=== PATIENT | female | born 1990 | race Caucasian/White ===

== ENCOUNTER → 2016-10-19 | Outpatient (CLI) | payer OTHER ==
[2016-10-19 15:15] LABS: HEMATOCRIT 33.9 % (37.0-47.0); HEMOGLOBIN 11.4 g/dL (12.0-16.0); MEAN CORPUSCULAR HEMOGLOBIN 31.1 PG (27-31); MEAN CORPUSCULAR HGB CONC 33.6 g/dL (33-37); MEAN PLATELET VOLUME 9.1 FL (7.4-12.2); RDW COEFFICIENT OF VARIATION 13.3 % (11.5-14.5); RED BLOOD COUNT 3.67 10^6/uL (4.20-5.40); WHITE BLOOD COUNT 10.89 10^3/uL (4.8-10.8)
== END ==
LOC: LAB 13:56
PROVIDERS: ATTEND Student in an Organized Health Care Education/Training Program
DX: Z34.92 Encounter for supervision of normal pregnancy, unspecified, second trimester (principal); Z3A.27 27 weeks gestation of pregnancy
CPT/HCPCS: 36415; 82950; 85027

== ENCOUNTER → 2016-11-05 | Outpatient (CLI) | payer OTHER ==
[2016-11-05 16:08] LABS: HEMATOCRIT 34.5 % (37.0-47.0); HEMOGLOBIN 11.3 g/dL (12.0-16.0); MEAN CORPUSCULAR HEMOGLOBIN 30.1 PG (27-31); MEAN CORPUSCULAR HGB CONC 32.8 g/dL (33-37); RDW COEFFICIENT OF VARIATION 13.1 % (11.5-14.5); RED BLOOD COUNT 3.76 10^6/uL (4.20-5.40); WHITE BLOOD COUNT 12.18 10^3/uL (4.8-10.8)
--- NOTE | 2016-11-05 16:55 | DI ---
US OB FOLLOW-UP,11/05/2016 3:20 PM: Clinical History: Size date discrepancy. Previous Exam: August 27, 2016 Findings: Multiple grayscale and color Doppler sonographic images are obtained through the pelvis demonstrating a normal amniotic fluid index (16.6 cm). Detected Doppler heart tones measure 122 beats per minute. biometry reveals an estimated gestational age of 32 weeks 2 days. Estimated weight is 1812 g (84th percentile). Biparietal diameter measures at the 97th percentile, but head circumference measures at the 92nd perc entile. Umbilical Dopplers were obtained demonstrating SD ratios of between 2.8 and 3.7. Impression: 1. Normal amniotic fluid index. 2. Single live intrauterine gestation with size equal to dates (estimated weight places the fet us at the 84th percentile).
== END ==
LOC: US 15:12
PROVIDERS: ATTEND Student in an Organized Health Care Education/Training Program
DX: O26.843 Uterine size-date discrepancy, third trimester (principal); O99.013 Anemia complicating pregnancy, third trimester; Z3A.30 30 weeks gestation of pregnancy
CPT/HCPCS: 36415; 76816; 85027

== ENCOUNTER → 2016-12-13 | Outpatient (CLI) | payer OTHER | LOC: MOB LAB 15:29 | PROVIDERS: ATTEND Student in an Organized Health Care Education/Training Program | DX: Z34.93 Encounter for supervision of normal pregnancy, unspecified, third trimester (principal); Z3A.35 35 weeks gestation of pregnancy | CPT/HCPCS: 87150 ==

== ENCOUNTER 2016-12-26 23:16 | Outpatient (CLI) | payer OTHER ==
[~2016-12-26 23:16] MED LIST: NORMAL SALINE 10 ML SYRINGE FLUSH IVP PRN
[2016-12-27 02:07] VITALS: RESP 14; TEMP 98.2
--- NOTE | 2016-12-28 20:48 | PDOC(PROG) ---
Intake - - Reason for Visit/Chief Complaint: Contractions Admitted From: Home - Estimated Due Date: 01/12/17 Gestational Age in Weeks and Days: 37 Weeks and 6 Days : 3 Para: 1 Term Births: 1 Births: 0 Number of Abortions (Spont./Elective): 1 Living Children: 1 - Labs Blood Type and Rh: A+ Group B Strep: Negative Hepatitis B Surface Antigen: Absent HIV: Negative Rubella Status: Immune VDRL/RPR: Absent Maternal - Vital Signs Last Taken Vital Signs: Vital Signs - Last Taken Temperature 98.2 F 12/27/16 01:24 Pulse Rate 71 12/27/16 01:24 Respiratory Rate 14 12/27/16 01:24 Blood Pressure 107/74 12/27/16 01:24 Pulse Ox 100 12/27/16 01:24 - Uterine Activity Uterine Contraction Monitor Mode: External Contraction Frequency(minutes): X1 Contraction Duration (seconds): 7 Uterine Contraction Pattern: Regular Uterine Tone Measurement Phase: Resting Uterine Contraction Intensity: Moderate - Cervical Exam Cervical Dilation (cm): 1-2 Cervical Effacement Percentage: 50 Station: -3 Exam Performed By: NAYELY Méndez - Vaginal Discharge Vaginal Bleeding Amount: None Vaginal Discharge Amount: None Vaginal Discharge Description: Thin Vaginal Discharge Color: [place] Vaginal Discharge Odor: Odorless Vaginal Itching: No Monitoring - Uterine Activity Uterine Contraction Monitor Mode: External Contraction Frequency(minutes): X1 Contraction Duration (seconds): 7 Uterine Contraction Pattern: Regular Uterine Tone Measurement Phase: Resting Uterine Contraction Intensity: Moderate Results - Bedside Testing Bedside Urine Ketone: Negative Bedside Urine Leukocytes Esterase: Moderate Bedside Urine Nitrite: Negative Bedside Urine Occult Blood: Moderate Bedside Urine Protein: Negative Bedside Specific [place]: 1.010 Assessment and Plan - Assessment / Plan Additional Assessment/Plan Details: No active labor. Reassuring maternal and evaluation. Discharge to home in good condition. - Time Time Spent With Patient: Less Than 15 Minutes
--- NOTE | 2016-12-29 08:50 | PDOC(PROG) ---
Intake - - Reason for Visit/Chief Complaint: Contractions Admitted From: Home - Estimated Due Date: 01/12/17 Gestational Age in Weeks and Days: 38 Weeks and 0 Days : 3 Para: 1 Term Births: 1 Births: 0 Number of Abortions (Spont./Elective): 1 Living Children: 1 - Labs Blood Type and Rh: A+ Group B Strep: Negative Hepatitis B Surface Antigen: Absent HIV: Negative Rubella Status: Immune VDRL/RPR: Absent Maternal - Vital Signs Last Taken Vital Signs: Vital Signs - Last Taken Temperature 98.2 F 12/27/16 01:24 Pulse Rate 71 12/27/16 01:24 Respiratory Rate 14 12/27/16 01:24 Blood Pressure 107/74 12/27/16 01:24 Pulse Ox 100 12/27/16 01:24 - Uterine Activity Uterine Contraction Monitor Mode: External Contraction Frequency(minutes): X1 Contraction Duration (seconds): 7 Uterine Contraction Pattern: Regular Uterine Tone Measurement Phase: Resting Uterine Contraction Intensity: Moderate - Cervical Exam Cervical Dilation (cm): 1-2 Cervical Effacement Percentage: 50 Station: -3 Exam Performed By: NAYELY Méndez - Vaginal Discharge Vaginal Bleeding Amount: None Vaginal Discharge Amount: None Vaginal Discharge Description: Thin Vaginal Discharge Color: [place] Vaginal Discharge Odor: Odorless Vaginal Itching: No Monitoring - Uterine Activity Uterine Contraction Monitor Mode: External Contraction Frequency(minutes): X1 Contraction Duration (seconds): 7 Uterine Contraction Pattern: Regular Uterine Tone Measurement Phase: Resting Uterine Contraction Intensity: Moderate Results - Bedside Testing Bedside Urine Ketone: Negative Bedside Urine Leukocytes Esterase: Moderate Bedside Urine Nitrite: Negative Bedside Urine Occult Blood: Moderate Bedside Urine Protein: Negative Bedside Specific [place]: 1.010 Assessment and Plan - Assessment / Plan Additional Assessment/Plan Details: No signs of active labor. Reassuring maternal and evaluation. Discharge to home in good condition. - Time Time Spent With Patient: Less Than 15 Minutes
== END 2016-12-27 02:02 | disposition home or self-care (01) ==
LOC: OBOP 23:16
PROVIDERS: ATTEND Obstetrics & Gynecology
DX: O60.03 Preterm labor without delivery, third trimester (principal); Z3A.37 37 weeks gestation of pregnancy
CPT/HCPCS: 59025; 81003; 99211

== ENCOUNTER 2016-12-27 13:53 | Outpatient (CLI) | payer OTHER ==
[2016-12-27] MEDS ORDERED: NORMAL SALINE 10 ML SYRINGE FLUSH IVP PRN (14:51)
[2016-12-27 15:14] VITALS: RESP 18
[2016-12-27 19:17] LABS: AMPHETAMINE SCREEN NEGATIVE (NEG); CANNABINOID SCREEN,URINE NEGATIVE (NEG); COCAINE SCREEN NEGATIVE (NEG); METHADONE URINE SCREEN NEGATIVE (NEG); METHAMPHETAMINES SCREEN,URINE NEGATIVE (NEG); OPIATE SCREEN,URINE POSITIVE (NEG); TRICYCLIC ANTIDEPRESSANT,URINE NEGATIVE (NEG); URINE SAMPLE TYPE VOIDED SPECIMEN; URINE SPECIFIC GRAVITY - MAN 1.015
--- NOTE | 2016-12-28 10:08 | PDOC(PROG) ---
Intake - - Reason for Visit/Chief Complaint: Leakage of Fluid Admitted From: Home - Estimated Due Date: 01/12/17 Gestational Age in Weeks and Days: 37 Weeks and 6 Days : 3 Para: 1 Term Births: 1 Births: 0 Number of Abortions (Spont./Elective): 1 Living Children: 1 - Labs Blood Type and Rh: A+ Group B Strep: Negative Hepatitis B Surface Antigen: Absent HIV: Negative Rubella Status: Immune VDRL/RPR: Absent Maternal - Vital Signs Last Taken Vital Signs: Vital Signs - Last Taken Temperature Pulse Rate 79 12/27/16 15:08 Respiratory Rate 18 12/27/16 15:08 Blood Pressure 124/68 12/27/16 15:08 Pulse Ox 98 12/27/16 15:08 - Uterine Activity Uterine Contraction Monitor Mode: External Contraction Frequency(minutes): x1 Contraction Duration (seconds): 40 Uterine Contraction Pattern: Absent - Vaginal Discharge Vaginal Bleeding Amount: None Vaginal Discharge Amount: None Monitoring - Uterine Activity Uterine Contraction Monitor Mode: External Contraction Frequency(minutes): x1 Contraction Duration (seconds): 40 Uterine Contraction Pattern: Absent Results - Bedside Testing Bedside Urine Ketone: Trace Bedside Urine Leukocytes Esterase: Negative Bedside Urine Nitrite: Negative Bedside Urine Occult Blood: Negative Bedside Urine Protein: Negative Bedside Specific [place]: 1.030 Assessment and Plan - Patient Problems (1) R/O SROM Status: Acute Support Text: 26 yo at 37 5/7 weeks gestation presented from home for possible SROM. Not grossly ruptured, Amnisure negative. Vaginosis panel negative for yeast, BV , trich. She had some uterine irritability/irreg contractions on arrival, but was quite dehydrated. After fluids contractions stopped. Baby OP, explaining a lot of her back pain symptoms. On SVE by me, -/-1, with slight bloody show. I explained that it is very unlikely she is ruptured given the negative amnisure. Without regular contractions and unchanged from her visit about 12 hours prior to triage patient does not appear to be in active labor. We discussed observing for a couple of hours vs return to home. As patient lives far away in [place] and already borrowed money to get here today, we did offer her a chance to stay at [facility], which is what her and her opted to do. If no onset of labor overnight, will return home. Of note patient disclosed to the nurse that she has been taking T3 which was prescribed by her Dentist. I was not aware she was still taking this, although I did know she had dental problems earlier in her . Urine drug screen ordered for this reason. Positive for opiates.
== END 2016-12-27 17:52 | disposition home or self-care (01) ==
LOC: OBOP 13:53
PROVIDERS: ATTEND Student in an Organized Health Care Education/Training Program
DX: O26.893 Other specified pregnancy related conditions, third trimester (principal); N89.8 Other specified noninflammatory disorders of vagina; Z3A.37 37 weeks gestation of pregnancy
CPT/HCPCS: 59025; 80305; 81003; 82542; 84112; 87480; 87510; 87660; 99211

== ENCOUNTER 2017-01-09 18:26 | Inpatient (IN) | payer OTHER ==
[2017-01-09] MEDS ORDERED: Famotidine Inj 20 MG in Normal Saline Flush 10 ML IVP PRN ×4 (19:48)
[2017-01-09] MEDS ORDERED: NORMAL SALINE 10 ML SYRINGE FLUSH IVP PRN (19:48)
[2017-01-09] MEDS ORDERED: OXYTOCIN 10 UNIT/1 ML IM PRN (19:48)
[2017-01-09] MEDS ORDERED: Nalbuphine Inj 20 MG/ML Ampule IVP PRN (19:48)
[2017-01-09] MEDS ORDERED: MISOPROSTOL 200 MCG TABLET RECTAL PRN (19:48)
[2017-01-09] MEDS ORDERED: fentaNYL Inj 100 MCG/2 ML VIAL IV PRN (19:48)
[2017-01-09] MEDS ORDERED: Carboprost Inj 250 MCG/ML AMP IM PRN (19:48)
[2017-01-09] MEDS ORDERED: Naloxone Inj 0.01 MG in Normal Saline Flush 1 ML IVP PRN (19:48)
[2017-01-09] MEDS ORDERED: CefOXitin Inj 2 GM in Sodium Chloride 0.9% 100 ML IV PRN (19:48)
[2017-01-09] MEDS ORDERED: NALOXONE 0.4 MG/1 ML VIAL IVP PRN (19:48)
[2017-01-09] MEDS ORDERED: Phenylephrine Inj 50 MCG in Normal Saline Flush 0.5 ML IVP PRN (19:48)
[2017-01-09] MEDS ORDERED: Metoclopramide Inj 10 MG/2 ML VIAL IV PRN (19:48)
[2017-01-09] MEDS ORDERED: CITRIC ACID/SODIUM CITRATE 30 ML CUP PO PRN (19:48)
[2017-01-09] MEDS ORDERED: TERBUTALINE SULFATE 1 MG/1 ML SDV SUBCUT PRN (19:48)
[2017-01-09] MEDS ORDERED: diphenhydrAMINE 50 MG/1 ML VIAL IVP PRN (19:48)
[2017-01-09] MEDS ORDERED: CALCIUM CARBONATE 500 MG (TUMS) CHEWABLE TABLET PO PRN (19:48)
[2017-01-09] MEDS ORDERED: BUTORPHANOL TARTRATE 2 MG/1 ML VIAL IVP PRN (19:48)
[2017-01-09] MEDS ORDERED: ONDANSETRON 4 MG/2 ML VIAL IVP PRN (19:48)
[2017-01-09] MEDS ORDERED: Lidocaine 1% 10 MG/ML - 20 ML VIAL SUBCUT PRN (19:48)
[2017-01-09] MEDS ORDERED: METHYLERGONOVINE MALEATE 0.2 MG/1 ML VIAL IM PRN (19:48)
[2017-01-09] MEDS ORDERED: LIDOCAINE W/ SODIUM BICARB 0.5 ML SYR SUBD PRN (19:48)
[2017-01-09] MEDS ORDERED: Misoprostol Tab 100 MCG TAB VAGINAL PRN (19:51)
[2017-01-09] MEDS ORDERED: Oxytocin 20 Units + LR 1,000 ML IV SCH (20:00)
[2017-01-09] MEDS: Lactated Ringers-OB Dept 1,000 ML PRIMARY IV SCH ×2 (21:00→22:28)
[2017-01-09 22:30] LABS: HEMOGLOBIN 11.5 g/dL (12.0-16.0); MEAN CORPUSCULAR HGB CONC 33.8 g/dL (33-37); MEAN CORPUSCULAR VOLUME 88.8 FL (81-99); MEAN PLATELET VOLUME 9.7 FL (7.4-12.2); RED BLOOD COUNT 3.83 10^6/uL (4.20-5.40)
[2017-01-09 22:41] LABS: AMPHETAMINE SCREEN NEGATIVE (NEG); CANNABINOID SCREEN,URINE NEGATIVE (NEG); COCAINE SCREEN NEGATIVE (NEG); METHADONE URINE SCREEN NEGATIVE (NEG); METHAMPHETAMINES SCREEN,URINE NEGATIVE (NEG); OPIATE SCREEN,URINE NEGATIVE (NEG); TRICYCLIC ANTIDEPRESSANT,URINE NEGATIVE (NEG); URINE SAMPLE TYPE VOIDED SPECIMEN; URINE SPECIFIC GRAVITY - MAN 1.024
[2017-01-10] MEDS: Lactated Ringers-OB Dept 1,000 ML PRIMARY IV SCH ×3 (05:30→11:44)
[2017-01-10] MEDS: ePHEDrine Inj 5 MG in Normal Saline Flush 1 ML IVP PRN ×2 (07:40→07:45)
[2017-01-10] MEDS ORDERED: LIDOCAINE MPF 2% - 5 ML (20 MG/1 ML) ONE ×2 (07:43→11:27)
[2017-01-10] MEDS ORDERED: Fent/Bupiv 2mcg/0.0625% Epid 250 ML ONE (07:54)
[2017-01-10] MEDS ORDERED: fentaNYL 2 MCG/BUPIVACAINE 0.0625%/NS 0.9% 250 ML BAG EPIDURAL ONE (08:00)
--- NOTE | 2017-01-10 08:27 | OB.PROGRES ---
Interval History: 26 yo at 39 5/7 weeks gestation admitted last night for elective IOL. She received one dose of cytotec 25mcg pv, oniel regularly now, painful. Epidural just placed. She reports minimal back pain, more anterior pain. uncomplicated. PMH notable for meth, marijuana. H/o exercise induced asthma, migraines, depression. Objective - Cervical Exam Cervical Exam: 4/80/-1 [place]: q3-4 mins, couplets prior to epidural Heart Rate: baseline 120, mod variability, +accels, no decels Heart Rate Interpretation Category: Category I - Labs CBC and BMP: 01/09/17 22:00 Labs - Last 24 Hours: Laboratory Results 01/09/17 Range/Units 22:00 WBC 10.75 (4.8-10.8) 10^3/uL RBC 3.83 L (4.20-5.40) 10^6/uL Hgb 11.5 L (12.0-16.0) g/dL Hct 34.0 L (37.0-47.0) % MCV 88.8 (81-99) FL MCH 30.0 (27-31) PG MCHC 33.8 (33-37) g/dL RDW Std Deviation 41.7 (39-50) fL RDW Coeff of Marian 13.2 (11.5-14.5) % Plt Count 212 (140-350) 10*3/uL MPV 9.7 (7.4-12.2) FL Ur Collection Type Voided specimen U Specif Grav (Refrac) 1.024 Urine Opiates Screen Negative (NEG) Ur Buprenorphine Negative (NEG) Ur Oxycodone Screen Negative (NEG) Urine Methadone Screen Negative (NEG) Ur Propoxyphene Screen Negative (NEG) Ur Barbiturates Screen Negative (NEG) U Tricyclic Antidepress Negative (NEG) Phencyclidine Screen Negative (NEG) Amphetamines Screen Negative (NEG) U Methamphetamines Scrn Negative (NEG) U Benzodiazepines Scrn Negative (NEG) Urine Cocaine Screen Negative (NEG) U Cannabinoids Screen Negative (NEG) - Vital Signs Last Taken Vital Signs: Vital Signs - Last Taken Temperature 98.1 F 01/10/17 03:00 Pulse Rate 61 01/10/17 06:00 Respiratory Rate 18 01/10/17 03:00 Blood Pressure 101/72 01/10/17 03:00 Pulse Ox 98 01/10/17 03:00 Assessment and Plan - Patient Problems (1) Term Current Visit: Yes Status: AcuteSupport Text: 26 yo at 39 5/7 weeks gestation admitted for elective IOL at term. -S/p 25 mcg cytotec, AROM just now - clear fluid -Epidural in place -GBS negative -Continue close observation -Rh positive, RI
--- NOTE | 2017-01-10 10:27 | CRNA.PROCE ---
Central Neuraxis Block [facility] - - Safety Measures: Site Verified - - Type of Block: Epidural (Epidural for labor analgesia.) Reason for Block: Analgesia Moniters Used During Block: SPO2, NIBP Positioning: Sitting Skin Prep Used: Betadine (Three times) Draped: Yes Spinal Needle Used: 18 Hustead 80 mm (NICOLETTE technique. 1st pass-severe parasthesia when attempting to thread catheter, abandoned space. Moved down 1 interspace same technique-epidural space times 1, catheter threaded easily. Pt very dramatic and has been moving around, even though she's been warned not to.) Local Anesthetic - Enter Amount Used in Comment Field: 1.5 % Xylocaine with Epinephrine 1:200,000 (mL): Yes (4 as test dose at 736.) Number of Centimeters Catheter Threaded: 3 Bioclusive Dressing Applied: Yes (With skin prep underneath.) - - Additional Details: Labor. Cytotec last night at 2200. Actively oniel. Uncomfortable with contractions. Loudly complaining. Laboratory Results 01/09/17 Range/Units 22:00 WBC 10.75 (4.8-10.8) 10^3/uL RBC 3.83 L (4.20-5.40) 10^6/uL Hgb 11.5 L (12.0-16.0) g/dL Hct 34.0 L (37.0-47.0) % MCV 88.8 (81-99) FL MCH 30.0 (27-31) PG MCHC 33.8 (33-37) g/dL RDW Std Deviation 41.7 (39-50) fL RDW Coeff of Marian 13.2 (11.5-14.5) % Plt Count 212 (140-350) 10*3/uL MPV 9.7 (7.4-12.2) FL Ur Collection Type Voided specimen U Specif Grav (Refrac) 1.024 Urine Opiates Screen Negative (NEG) Ur Buprenorphine Negative (NEG) Ur Oxycodone Screen Negative (NEG) Urine Methadone Screen Negative (NEG) Ur Propoxyphene Screen Negative (NEG) Ur Barbiturates Screen Negative (NEG) U Tricyclic Antidepress Negative (NEG) Phencyclidine Screen Negative (NEG) Amphetamines Screen Negative (NEG) U Methamphetamines Scrn Negative (NEG) U Benzodiazepines Scrn Negative (NEG) Urine Cocaine Screen Negative (NEG) U Cannabinoids Screen Negative (NEG) E-natals reviewed. Epidural placed-Test dose @736-5ml of 2% Lido MPF via epidural at 745. Infusion of Bupivicaine 0.0625 plus Fentanyl 2 mcgs per ml at 14 ml per hour. See pump orders. Pt reports comfort. Danilo Baldwin MS, CERTIFIED REAL ESTATE APPRAISER
[2017-01-10] MEDS ORDERED: Sodium Chloride 0.9% vial 10 ML ONE (11:27)
--- NOTE | 2017-01-10 13:14 | OB.DEL.SUM ---
Delivery Note Delivery Summary: 26 yo G3 now P2012 presented last night for elective IOL. She received one dose of 25 mcg cytotec pv, AROM the next morning and progressed to complete. With approximately 6 pushes she had a of a live male in JANES position over intact perineum with epidural anesthesia. No meconium present, no nuchal cord. The placenta then delivered spontaneously, 3 vessel. Vaginal inspection notable only for periurethral skid han. No repairs necessary. EBL 200 cc. Cord and needle counts were correct. Apgars 8,9. Mom and baby tolerated delivery well. Cord gases: pH 7.436 PCO2 27.2 HCO3 18.3 BE -6 - Patient Problems (1) Term Current Visit: Yes Status: Acute (2) (normal spontaneous vaginal delivery) Current Visit: Yes Status: Acute
[2017-01-10] MEDS ORDERED: GLYCERIN/WITCH HAZEL 1 BOX TOPICAL PRN (13:23)
[2017-01-10] MEDS ORDERED: diphenhydrAMINE 25 MG CAPSULE PO PRN (13:23)
[2017-01-10] MEDS ORDERED: LANOLIN HPA 40 GM TUBE TOPICAL PRN (13:23)
[2017-01-10] MEDS ORDERED: OXYTOCIN 10 UNIT/1 ML IM ONE (13:23)
[2017-01-10] MEDS ORDERED: diphenhydrAMINE 50 MG/1 ML VIAL IVP PRN (13:23)
[2017-01-10] MEDS ORDERED: METHYLERGONOVINE MALEATE 0.2 MG/1 ML VIAL IM PRN (13:23)
[2017-01-10] MEDS ORDERED: ONDANSETRON 4 MG/2 ML VIAL IVP PRN (13:23)
[2017-01-10] MEDS ORDERED: ACETAMINOPHEN 325 MG TABLET PO PRN (13:23)
[2017-01-10] MEDS ORDERED: Ondansetron ODT Tab 4 MG TAB PO PRN (13:23)
[2017-01-10] MEDS ORDERED: MISOPROSTOL 200 MCG TABLET RECTAL ONE (13:23)
[2017-01-10] MEDS ORDERED: BENZOCAINE/MENTHOL SPRAY 56 GM BOTTLE TOPICAL PRN (13:23)
[2017-01-10] MEDS ORDERED: CALCIUM CARBONATE 500 MG (TUMS) CHEWABLE TABLET PO PRN (13:23)
[2017-01-10] MEDS ORDERED: Oxytocin 20 Units + LR 1,000 ML IV SCH (13:23)
[2017-01-10] MEDS ORDERED: Nalbuphine Inj 20 MG/ML Ampule IVP PRN (13:23)
[2017-01-10] MEDS ORDERED: Carboprost Inj 250 MCG/ML AMP IM PRN (13:23)
[2017-01-10] MEDS ORDERED: NORMAL SALINE 10 ML SYRINGE FLUSH IVP PRN (13:23)
[2017-01-10] MEDS ORDERED: Methylergonovine Tab 0.2 MG TAB PO PRN (13:23)
[2017-01-10] MEDS: IBUPROFEN 800 MG TABLET PO PRN ×2 (14:06→22:03)
[2017-01-10] MEDS: HYDROcodone-APAP 5 MG -325 MG TABLET PO PRN ×2 (19:54→23:50)
[2017-01-10] MEDS: DOCUSATE 100 MG CAPSULE PO SCH (20:00)
[2017-01-10 20:10] VITALS: RESP 18
[2017-01-11] MEDS: HYDROcodone-APAP 5 MG -325 MG TABLET PO PRN ×3 (05:24→14:44)
[2017-01-11] MEDS: IBUPROFEN 800 MG TABLET PO PRN ×2 (05:33→13:27)
[2017-01-11 05:36] LABS: HEMATOCRIT 29.1 % (37.0-47.0); HEMOGLOBIN 9.5 g/dL (12.0-16.0); MEAN CORPUSCULAR HEMOGLOBIN 29.6 PG (27-31); MEAN CORPUSCULAR HGB CONC 32.6 g/dL (33-37); MEAN CORPUSCULAR VOLUME 90.7 FL (81-99); MEAN PLATELET VOLUME 9.7 FL (7.4-12.2); RED BLOOD COUNT 3.21 10^6/uL (4.20-5.40)
[2017-01-11 05:40] VITALS: TEMP 98
--- NOTE | 2017-01-11 08:55 | DCSUMMARY ---
Hospitalization Summary Admit Date: 01/09/17 Discharge Date: 01/11/17 Primary Diagnosis:: s/p Delivery Type: Vaginal Hospital Course: 26 yo G3 now P2 admitted for elective IOL. She was given one dose of 25mcg cytotec pv, underwent AROM and progressed to complete. She delivered a TAGA male at 40 5/7 weeks gestation via , with epidural. No significant tears, just b/l periurethral skid han. / Postop Complications: None apparent [place] Complications: None apparent Exam - Vitals Vital Signs: Vital Signs Temperature 98.0 F Temperature Source Oral Pulse Rate [Pulse Oximeter] 96 Pulse Rate 81 Respiratory Rate [Uterine 20 Contractions] Respiratory Rate 18 Blood Pressure [Right Arm] 110/75 Blood Pressure 120/75 Pulse Ox 98 Oxygen Delivery Method Room Air Height 5 ft 6 in Weight 155 lb 12.8 oz - General General Appearance: POSITIVE: No Acute Distress, Cooperative - Head Head Exam: POSITIVE: Normal Inspection - Eye Eye Exam: POSITIVE: Normal Appearance, EOMI - ENT ENT Exam: POSITIVE: Normal Exam - Respiratory Respiratory Exam: POSITIVE: Clear to Auscultation - Bilaterally, Breathing Non Labored - Cardiovascular Cardiovascular Exam: POSITIVE: RRR - GI/Abdominal GI/Abdominal Exam: POSITIVE: Normal Bowel Sounds, Non Tender, Non Distended, Soft Additional GI/Abdominal Exam Details: Uterus Firm, U-2 - Extremities Extremities Exam: POSITIVE: Negative Emily's sign, +1 Edema. NEGATIVE: Calf Tenderness - Neurological Neurological Exam: POSITIVE: Alert, Oriented x 3 - Psychiatric Psychiatric Exam: POSITIVE: Normal Affect, Normal Mood - Integumentary Integumentary Exam: POSITIVE: Normal Color Patient Problems - Patient Problem List (1) Term Current Visit: Yes Status: Acute (2) (normal spontaneous vaginal delivery) Current Visit: Yes Status: AcuteSupport Text: 26 yo , PPD 1. -Doing well -Breast feeding well -Planning to do a tubal 6 weeks pp, will have her sign med 178 today -F/u with me at 6 weeks pp
[2017-01-11] MEDS ORDERED: Prenatal Multivitamin Tab 1 TAB TAB PO SCH (09:00)
[2017-01-11] MEDS: DOCUSATE 100 MG CAPSULE PO SCH (10:53)
--- NOTE | 2017-01-11 14:43 | CRNA.PROGR ---
Anesthesia Note Anesthesia Progress Note: Pt is sitting in chair in hallway, holding her . Pt and complaining about how hot it is in their room. Air handling system is currently out of order in her room. Maintenance is aware. Pt denies headache. Says her back hurts and that they are getting orders for Motrin. Pt states she has a long history of back problems. Back discomfort magnified by labor and epidural placement. She is happy about her . Danilo Baldwin MS, [employer]
== END 2017-01-11 15:00 | disposition home or self-care (01) | DRG 775 ==
LOC: OBIP 19:48
PROVIDERS: ADMIT Student in an Organized Health Care Education/Training Program; ATTEND Student in an Organized Health Care Education/Training Program
PROC: 10907ZC Drainage of Amniotic Fluid, Therapeutic from Products of Conception, Via Natural or Artificial Opening (ICD-10-PCS; 2017-01-09)
PROC: 3E0P7GC Introduction of Other Therapeutic Substance into Female Reproductive, Via Natural or Artificial Opening (ICD-10-PCS; 2017-01-09)
PROC: 10E0XZZ Delivery of Products of Conception, External Approach (ICD-10-PCS; principal; 2017-01-10)
DX: O80 Encounter for full-term uncomplicated delivery (principal); Z3A.39 39 weeks gestation of pregnancy; Z37.0 Single live birth
CPT/HCPCS: 36415; 80305; 81003; 85027; A4216; J2001; J2210; J3010; J3490; J7120

== ENCOUNTER 2017-01-17 18:45 | Inpatient (IN) | payer OTHER ==
[2017-01-17] MEDS ORDERED: Sodium Chloride 0.9% 1,000 ML PRIMARY IV ONE (19:11)
[2017-01-17 19:19] LABS: BILIRUBIN,URINE NEGATIVE (NEG); COLOR,URINE YELLOW; GLUCOSE, URINE (UA) NEGATIVE (NEG); NITRATE,URINE NEGATIVE (NEG); OCCULT BLOOD,URINE MODERATE (NEG); PH,URINE 5.5 (5.0-8.5); PROTEIN,URINE TRACE mg/dl (NEG); UROBILINOGEN,URINE 0.2 EU/dL (0.2)
[2017-01-17 19:25] LABS: CLARITY,URINE CLEAR (CLEAR); URINE SAMPLE TYPE VOID
[2017-01-17] MEDS ORDERED: HYDROmorphone 2 MG/1 ML IVP ONE (19:25)
[2017-01-17 19:26] LABS: SQUAMOUS EPITHELIAL CELL,UR FEW
[2017-01-17] MEDS ORDERED: Clindamycin 900mg (Premix) 900 MG in Dextrose 1 BAG IV ONE (19:36)
[2017-01-17] MEDS ORDERED: GENTAMICIN IV ONE (19:36)
[2017-01-17] MEDS ORDERED: SODIUM CHLORIDE 0.9% IV ONE (19:36)
--- NOTE | 2017-01-17 20:53 | PDOC ---
General Adult HPI - General Chief Complaint: General Medical Stated Complaint: Back pain / Fevers / s/p 1 week Date Seen by Provider: 01/17/17 Time Seen by Provider: 19:00 Source: POSITIVE: Patient, EMS, Other (Records from the sending facility and verbal from sending physician) Exam Limitations: POSITIVE: No limitations Nurse's Notes Reviewed & Considered: Yes - History of Present Illness Initial Comment: The patient is a 26-year-old female who is transferred to our emergency department from [place] with complaints of back/abdominal pain and fever. She is approximately one week status post vaginal delivery. She states that over the past 24 hours she has developed lower back and flank pain as well as lower abdominal cramping. Today she started running a fever. She had initially gone to the clinic in [place] and then was referred to the emergency room there. She had a chest x-ray that was normal as well as a urinalysis that by report did not show any evidence of infection. Her white blood cell count there was elevated at 15,000. Blood cultures were drawn there in the emergency room. She received IV fluids as well as IV Toradol with only minimal relief and subsequently had been given Dilaudid. Decision was made to transfer here for further evaluation. The patient also reports headache which is worse with standing. She did have an epidural during her delivery. She has had some associated nausea. She denies any burning with urination. She states that yesterday she took it easy for the most part and did not have really any significant vaginal bleeding. Today when her pain intensified she did have some increased bleeding however this seems to have subsided again now. Have you received a tetanus shot in the past 10 years?: Yes - Patient Home Medications Home Medications: Home Medications Albuterol Sulfate [Proair Hfa] 1 puff INH Q4-6H puff 05/04/16 Pnv95/Ferrous Fumarate/FA [ Vitamin Tablet] 1 each PO DAILY #30 tab Ferrous Gluconate [Fergon] 2 mg PO BID #60 tab 11/05/16 Omeprazole Magnesium [Prilosec Otc] 1 tab PO QD #30 tab 12/07/16 Docusate Sodium [Colace] 100 mg PO BID #60 cap 01/11/17 HYDROcodone/APAP 5/325 Tab [Biddle 5/325 Tab] 1 - 2 tab PO Q4H PRN #10 tab Ibuprofen [Motrin] 800 mg PO Q8H PRN #60 tab 01/11/17 - Patient Allergies Allergies/Adverse Reactions: Allergies Allergy/AdvReac Type Severity Reaction Status Date / Time Penicillins Allergy Anaphylaxis Verified 01/17/17 19:25 Past Medical History - heen HEENT History: Denies History Cardiovascular History: Denies History Respiratory History: Asthma, Other (please comment) Additional Respiratory History: CHRONIC COUGH, exercised induced asthma Gastrointestinal History: Denies History Genitourinary History: Denies History Endocrine History: Other (please comment) Additional Endocrine History: States Hypoglycemia Musculoskeletal History: Back Pain Prosthesis or Implant: No Neurological History: Migraines Blood Disorders: Anemia Additional Blood Disorders History: Iron Infusions Psychiatric History: Depression Additional Psychiatric History: No Medications. HX Marijauna Use History of Sexually Transmitted Diseases: No Cancer History: Denies History History of MDRO: No History of Other Communicable Diseases: No Alcohol Use: None Substance Use Type: Marijuana Previous Surgical History: No Anesthesia Reactions: No Malignant Hyperthermia: No Significant Family History: Asthma, Heart disease, Cancer, COPD, Lung disease Past Medical History Reviewed: Reviewed - No Changes ROS - Limitations ROS Limitations: No Limitations Constitution: REPORTS: Fever Cardiovascular: REPORTS: Denies Cardiac Symptoms Respiratory: REPORTS: Denies Resp Symptoms Neurological: REPORTS: Headache. DENIES: Numbness, Weakness Gastrointestinal: REPORTS: Abdominal Pain (Lower abdominal pain and cramping), Nausea, Vomitting Musculoskeletal: REPORTS: Denies MS Symptoms Genitourinary: REPORTS: Flank Pain. DENIES: Dysuria, Hematuria, Difficulty Urinating Eyes: REPORTS: Denies Symptoms ENT: REPORTS: Denies Symptoms Skin: DENIES: Rash General Adult Exam - General Appearance General Appearance: POSITIVE: Alert, Cooperative, No Acute Distress, Other (She does appear ill on arrival) - HEENT HEENT: POSITIVE: Head Inspection Nml, Eyes Inspection Nml, Nose Inspection Nml, Pharynx Inspect. Nml, Dry Mucous Membranes - Neck Neck: POSITIVE: Normal Inspection. NEGATIVE: Lymphadenopathy - Respiratory Respiratory: POSITIVE: No Respiratory Distress, Breath Sounds Normal - Cardiovascular Cardiovascular: POSITIVE: Regular Rate & Rhythm, No Murmur - Abdomen Abdomen: Soft: (All Quadrants), Normal Bowel Sounds: (All Quadrants), No Guarding: (All Quadrants), No Rebound: (All Quadrants) Additional Abdominal Details: The patient does have some suprapubic abdominal tenderness and with palpation of her lower abdomen she does have some pain in the right lower quadrant as well , no guarding or rebound tenderness, she does have left CVA tenderness - Back Back: POSITIVE: CVA Tenderness (Left-sided) - Skin Skin: POSITIVE: Normal Color, No Rash - Extremities Extremity: Normal ROM: (All Extremities), Normal Inspection: (All Extremities) - Neurological / Psychological Neurological: POSITIVE: Oriented X3, Motor Normal, Sensation Normal General Adult Progress - Results Reviewed by me Xrays/CTs/US Reviewed by me: Yes Discussed with Radiologist: Yes Radiology Findings: CT scan of the abdomen and pelvis with IV contrast does reveal an enlarged uterus, there is some hypervascularity noted to the anterior uterine wall, there is also a hyperdensity noted at the junction between the uterus and cervix of unknown significance per radiologist. Lab Results Reviewed: Yes Lab Results:: Laboratory Results 01/17/17 Range/Units 19:16 Ur Collection Type Void Urine Color Yellow Urine Clarity Clear (CLEAR) Urine pH 5.5 (5.0-8.5) Ur Specific [place] 1.020 (1.005-1.030) Urine Protein Trace (NEG) mg/dl Urine Glucose (UA) Negative (NEG) mg/dL Urine Ketones 40 (NEG) Urine Occult Blood Moderate H (NEG) Urine Nitrate Negative (NEG) Urine Bilirubin Negative (NEG) Urine Urobilinogen 0.2 (0.2) EU/dL Ur Leukocyte Esterase Negative (NEG) Urine RBC 5-10 (NONE) /hpf Urine WBC None (NONE) Ur Squamous Epith Cells Few (NONE) Ur Renal Epithelial Cell None (NONE) Urine Crystals None Urine Bacteria None (NONE) Urine Casts None (NONE) Urine Mucus None (NONE) Urine Trichomonas None (NONE) Urine Yeast None (NONE) Ur Culture Indicated? Culture not set - Patient's Progress MDM / ED Course: The patient had been transported to our emergency room by ambulance from [place]. She had an IV already established and blood cultures had artery been drawn at the previous facility. Records were reviewed. The patient did receive a second dose of Dilaudid 1 mg IV for pain. She did have a repeat urinalysis here which revealed no evidence of white blood cells or other sign of infection. She did undergo CT scan which shows an enlarged uterus with some hyperdensity noted at the junction between the uterus and cervix. No other acute abnormalities were noted on CT. The patient is discussed with Dr. Lopez. She will be treated with IV clindamycin and IV gentamicin for treatment of endometritis. Dr. Lopez's admitting the patient for further care. These findings and recommendations were discussed with the patient and she is in agreement with this plan. - Consult Counseled: POSITIVE: Patient, RE: Lab Results, RE: Radiology Results, RE: DX, RE : Need for F/U Patient Care Time - Estimated PCT Patient Care Time (In Minutes): 25 Vital Signs - VS Reviewed Vital Signs Reviewed: Yes Discharge Clinical Impression: Endometritis Discharge Disposition: Admit to Inpatient Condition: Stable Date Decision to Admit to Inpatient: 01/17/17 Time Decision to Admit to Inpatient: 20:35
--- NOTE | 2017-01-17 20:54 | DI ---
CT ABDOMEN SCAN WITH IV CONTRAST, 01/17/2017 7:34 PM : Clinical History: Abdominal pain. Elevated white count. The patient is one week . Previous Exam: 11/09/2013. Scans are performed from the lower lung bases through the liver and kidneys with IV contrast. 75 ml o f Isovue 300 was injected IV. The lung bases are clear. On the prior study, there was a density in the right middle lobe measuring about 20 mm in diameter but this area was not scanned on the current exam. Both breasts are enlarged with considerable breast parenchyma consistent with a history of a recent delivery one week earlier. The liver is normal. The gallbladder is grossly normal. There is no abnormality of the spleen, pancre as, and adrenal glands. Both kidneys are normal in size, shape, position and contour. There is no hyd ronephrosis or hydroureter. No renal or ureteral calculi are present. There are no abnormal retrocrur al or periaortic nodes. No ascites is present. READIN. Normal CT abdomen scan. 2. On the previous exam, there was a density in the right middle lobe measuring 20 mm in diameter. T his area was not imaged on the current exam and therefore it cannot be established whether or not thi s lesion has resolved. CT PELVIS SCAN WITH IV CONTRAST, 01/17/2017 7:34 PM: Clinical History: See above. Previous Exam: None at this facility. Scans are performed from just superior to the umbilicus to the symphysis pubis with IV contrast. This is the same bolus of contrast used for the CT scans of the abdomen. Scans through the lower abdomen and pelvis show no masses or abnormal fluid collections. There is no adenopathy. The appendix is normal. The small bowel, terminal ileum, and ileocecal valve are normal. The colon is also normal. There are no hernias. The uterus is enlarged and measures approximately 8 x 12 x 14 cm. The anterior wall of the uterus is hypervascular and review of the antepartum scans of t his patient show that the placenta was anterior corpus. This probably explains the hypervascularity o f the anterior wall. The central uterine canal is hypoechoic. Toward the junction between the uterus and cervix is a focus of increased density measuring about 3 cm in diameter. This density appears to be within the uterine canal and not part of the uterus itself. The exact etiology of this 3 cm mass i s uncertain. The differential would be between a large blood clot versus retained products of concept ion if this patient is exhibiting vaginal bleeding. Both ovaries are normal. READIN. Enlarged uterus, probably still within normal limits for the patient's one week status . The anterior aspect of the uterus is hypervascular and this may be related to the site of implantat ion of the placenta during this . There is a 3 cm area of increased density within the uteri ne cavity at the junction between the uterus and cervix and the exact etiology is uncertain. 2 possib ilities would be a residual blood clot versus retained products of conception, assuming the patient i s having vaginal bleeding. The ovaries are normal. 2. The remainder of the exam is normal.
--- NOTE | 2017-01-17 21:03 | PDOC ---
History and Physical - History of Present Illness Chief Complaint: Fever, abdominal and back pain History of Present Illness: 26 yo G3 now P2, PPD 7 s/p who [facility] for back pain, abdominal pain and fever. Delivery notable for IOL at term. She received 1 dose of cytotec then underwent AROM shortly before delivery. She did have an epidural for pain control. She is breast feeding. Since d/c has had increasing back pain. She did have some increased vaginal bleeding today with the pain, but no foul odor or discoloration. Some associated nausea and DIOP (worse with standing). Workup notable for leukocytosis, normal UA with the exception of hematuria, normal CXR. Blood cultures were collected. CT with contrast - normal appendix, increased vascularity, hypodensity at the junction of uterus and cervix. Past Medical History Medical History: Asthma, Kidney stones, depression, anemia, arthritis, HAs Surgical History: none Tobacco Use: Former Smoker Substance Use Type: Marijuana Medication / Allergies Home Medications: Home Medications Medication Instructions Recorded Confirmed Type Albuterol Sulfate [Proair Hfa] 1 puff INH Q4-6H puff 05/04/16 01/17/17 History Pnv95/Ferrous Fumarate/FA 1 each PO DAILY #30 tab 05/13/16 01/17/17 Clinic [ Vitamin Tablet] Ferrous Gluconate [Fergon] 2 mg PO BID #60 tab 11/05/16 01/17/17 Clinic Omeprazole Magnesium [Prilosec Otc] 1 tab PO QD #30 tab 12/07/16 01/17/17 Clinic Docusate Sodium [Colace] 100 mg PO BID #60 cap 01/11/17 01/17/17 Rx HYDROcodone/APAP 5/325 Tab [[place] 1 - 2 tab PO Q4H PRN #10 tab 01/11/17 Rx 5/325 Tab] Ibuprofen [Motrin] 800 mg PO Q8H PRN #60 tab 01/11/17 01/17/17 Rx Allergies/Adverse Reactions: Allergies Allergy/AdvReac Type Severity Reaction Status Date / Time Penicillins Allergy Anaphylaxis Verified 01/17/17 21:20 Review of Systems - Constitutional Constitutional: REPORTS: Fever/Chills, Fatigue - Integumentary Integumentary: DENIES: Rash - Ear/Nose Exam Ear/Nose Exam: DENIES: Sinus Pain, Rhinorrhea, Congestion - Mouth/Throat Mouth/Throat Exam: DENIES: Sore Throat - Respiratory Respiratory: DENIES: Cough, Wheezing - Cardiovascular Cardiovascular: DENIES: Chest Pain, Palpitations - Gastrointestinal Gastrointestinal / Abdominal: REPORTS: Nausea, Abdominal Pain. DENIES: Vomiting , Diarrhea, Constipation, Heartburn - Genitourinary Genitourinary: DENIES: Pain, Burning - Gynecological Gynecological: REPORTS: Vaginal Bleeding. DENIES: Vaginal Discharge, Breast Tenderness - Musculoskeletal Musculoskeletal: REPORTS: Back Pain - Neurological Neurologic: REPORTS: Headache Exam - Vitals Vital Signs: Vital Signs Height 5 ft 6 in Weight 152 lb - General General Appearance: POSITIVE: Mild Distress (laying in bed with hands over her head, curled up. Not very participatory) - Head Head Exam: POSITIVE: Normal Inspection, Normocephalic - Eye Eye Exam: POSITIVE: PERRL, EOMI, No Scleral Icterus. NEGATIVE: Conjuctival Injection - Neck Neck Exam: NEGATIVE: Lymphadenopathy - Respiratory Respiratory Exam: POSITIVE: Clear to Auscultation - Bilaterally, Breathing Non Labored - Cardiovascular Cardiovascular Exam: POSITIVE: RRR, No Murmur - GI/Abdominal GI/Abdominal Exam: POSITIVE: Normal Bowel Sounds, Non Distended, Soft. NEGATIVE : Distended, Guarding Additional GI/Abdominal Exam Details: TTP suprapubically, uterus firm - Extremities Extremities Exam: POSITIVE: Normal Inspection, Normal Capillary Refill - Back Back Exam: POSITIVE: Normal Inspection (No erythema, warmth, edema at site of epidural) - Neurological Neurological Exam: POSITIVE: Alert, Oriented x 3, Moves All Extremities Equally - Psychiatric Psychiatric Exam: POSITIVE: Agitated - Integumentary Integumentary Exam: POSITIVE: Normal Color, Warm Results - Labs CBC and BMP: 01/18/17 04:21 Labs - Last 24 Hours: Laboratory Results 01/17/17 Range/Units 19:16 Ur Collection Type Void Urine Color Yellow Urine Clarity Clear (CLEAR) Urine pH 5.5 (5.0-8.5) Ur Specific [place] 1.020 (1.005-1.030) Urine Protein Trace (NEG) mg/dl Urine Glucose (UA) Negative (NEG) mg/dL Urine Ketones 40 (NEG) Urine Occult Blood Moderate H (NEG) Urine Nitrate Negative (NEG) Urine Bilirubin Negative (NEG) Urine Urobilinogen 0.2 (0.2) EU/dL Ur Leukocyte Esterase Negative (NEG) Urine RBC 5-10 (NONE) /hpf Urine WBC None (NONE) Ur Squamous Epith Cells Few (NONE) Ur Renal Epithelial Cell None (NONE) Urine Crystals None Urine Bacteria None (NONE) Urine Casts None (NONE) Urine Mucus None (NONE) Urine Trichomonas None (NONE) Urine Yeast None (NONE) Ur Culture Indicated? Culture not set Assessment and Plan - Patient Problems (1) Endometritis Current Visit: Yes Status: AcuteSupport Text: Presumed endometritis given fever, abdominal tenderness, leukocytosis. Urine unremarkable. Normal CXR. Epidural site not red or warm. -Admit -IV clindamycin 900 mg q8h, gentamycin 5mg/kg iv daily -Toradol, vicodin for pain -NS 125 cc/hr overnight for hydration -Repeat CBC in am -SCDs for ppx Photo / Body Diagrams - Uploaded Photos Uploaded Photos:
[2017-01-17] MEDS ORDERED: diphenhydrAMINE 25 MG CAPSULE PO PRN (21:18)
[2017-01-17] MEDS ORDERED: Zolpidem Tab 5 MG TAB PO PRN (21:18)
[2017-01-17] MEDS ORDERED: BENZOCAINE/MENTHOL SPRAY 56 GM BOTTLE TOPICAL PRN (21:18)
[2017-01-17] MEDS ORDERED: diphenhydrAMINE 50 MG/1 ML VIAL IVP PRN (21:18)
[2017-01-17] MEDS ORDERED: LANOLIN HPA 40 GM TUBE TOPICAL PRN (21:18)
[2017-01-17] MEDS ORDERED: ONDANSETRON 4 MG/2 ML VIAL IVP PRN (21:18)
[2017-01-17] MEDS ORDERED: CALCIUM CARBONATE 500 MG (TUMS) CHEWABLE TABLET PO PRN (21:18)
[2017-01-17] MEDS ORDERED: Ondansetron ODT Tab 4 MG TAB PO PRN (21:18)
[2017-01-17] MEDS ORDERED: Zolpidem Tab 5 MG TAB PO ONE (22:01)
[2017-01-17] MEDS: DOCUSATE 100 MG CAPSULE PO SCH (22:04)
[2017-01-17] MEDS: HYDROcodone-APAP 5 MG -325 MG TABLET PO PRN (22:04)
[2017-01-17] MEDS: KETOROLAC 15 MG/1 ML VIAL IVP PRN (22:04)
[2017-01-17] MEDS: Lactated Ringers 1,000 ML PRIMARY IV SCH (22:05)
[2017-01-18] MEDS: HYDROcodone-APAP 5 MG -325 MG TABLET PO PRN ×4 (03:07→19:39)
[2017-01-18] MEDS: Clindamycin 900mg (Premix) 900 MG in Dextrose 1 BAG IV SCH ×3 (03:11→19:54)
[2017-01-18 05:04] LABS: HEMATOCRIT 29.8 % (37.0-47.0); HEMOGLOBIN 9.7 g/dL (12.0-16.0); MEAN CORPUSCULAR HEMOGLOBIN 29.1 PG (27-31); MEAN CORPUSCULAR HGB CONC 32.6 g/dL (33-37); MEAN CORPUSCULAR VOLUME 89.5 FL (81-99); MEAN PLATELET VOLUME 9.4 FL (7.4-12.2); RED BLOOD COUNT 3.33 10^6/uL (4.20-5.40)
[2017-01-18] MEDS: KETOROLAC 15 MG/1 ML VIAL IVP PRN ×3 (05:04→19:40)
[2017-01-18] MEDS: Lactated Ringers 1,000 ML PRIMARY IV SCH ×2 (06:47→14:53)
[2017-01-18] MEDS: Prenatal Multivitamin Tab 1 TAB TAB PO SCH (08:21)
[2017-01-18] MEDS: DOCUSATE 100 MG CAPSULE PO SCH ×2 (08:21→21:55)
--- NOTE | 2017-01-18 16:37 | PT.PROG ---
Progress Note Progress Note: S. Patient states that she is still having a headache however is feeling a little better. O. Patient had combo massage, manual traction, and stretching to her neck to attempt to decrease headache and pain. A. Patient continues to struggle with pain and headaches, she reported that she was feeling a little better after massage and stretch. P. Continue POC.
--- NOTE | 2017-01-18 17:39 | PDOC(PROG) ---
Date and Time of Service: 01/18/2017 1100 Interval History: 26 yo G3 now P2 admitted last night for presumed endometritis given leukocytosis , fever, abdominal/pack pain. She was started on clinda/gent. She reports today she feels significantly better. Back pain nearly resolved. Continues to have a more mild headache at the base of her skull. She just had PT in, states that helped. She is eating, taking fluids well. Minimal lochia, she did report a mild odor today, denied an odor yesterday. Some uterine cramping, although mild. Objective : Data - Labs CBC and BMP: 01/18/17 04:21 Labs - Last 24 Hours: Laboratory Results 01/18/17 Range/Units 04:21 WBC 11.67 H (4.8-10.8) 10^3/uL RBC 3.33 L (4.20-5.40) 10^6/uL Hgb 9.7 L (12.0-16.0) g/dL Hct 29.8 L (37.0-47.0) % MCV 89.5 (81-99) FL MCH 29.1 (27-31) PG MCHC 32.6 L (33-37) g/dL RDW Std Deviation 41.6 (39-50) fL RDW Coeff of Marian 13.0 (11.5-14.5) % Plt Count 207 (140-350) 10*3/uL MPV 9.4 (7.4-12.2) FL Objective : Exam - General General Appearance: No Acute Distress, Cooperative - Head Head Exam: Normal Inspection - Eye Eye Exam: Normal Appearance, PERRL - ENT ENT Exam: Mucous Membranes Moist - Neck Neck Exam: Normal Inspection - Respiratory Respiratory Exam: Clear to Auscultation - Bilaterally, Breathing Non Labored - Cardiovascular Cardiovascular Exam: RRR, No Murmur - GI/Abdominal GI/Abdominal Exam: Normal Bowel Sounds, Non Tender, Non Distended, Soft Additional GI/Abdominal Exam Details: Mild tenderness at fundus of uterus, suprapubic - Exam: Deferred - Extremities Extremities Exam: No Edema Present, Negative Emily's sign - Back Back Exam: Normal Inspection Additional Back Exam Details: No tenderness - Neurological Neurological Exam: Alert, Oriented x 3 - Psychiatric Psychiatric Exam: Normal Affect, Normal Mood - Integumentary Integumentary Exam: Normal Color, Warm, Dry Assessment and Plan - Patient Problems (1) Endometritis Current Visit: Yes Status: AcuteSupport Text: Presumed endometritis given fever, abdominal tenderness, leukocytosis. Afebrile since admission. -Continue IV clindamycin 900 mg q8h, gentamycin 5mg/kg iv daily until 24 hours afebrile, likely switch to augmentin in the morning -Toradol, vicodin for pain -Saline lock IV as taking fluids well now -Recommended caffeine for headache, doubt spinal at this point. (did discuss with ACQUISITIONS EDITOR as well) -Pump and dump until 24 hours after last IV clinda dose -Repeat CBC in am -SCDs for ppx -Anticipate d/c home tomorrow if doing well Photo / Body Diagrams - Uploaded Photos Uploaded Photos:
[2017-01-18] MEDS: NORMAL SALINE 10 ML SYRINGE FLUSH IVP PRN (19:45)
[2017-01-18] MEDS ORDERED: Gentamicin Inj 40 MG/ML VIAL ONE (21:33)
[2017-01-19] MEDS: Clindamycin 900mg (Premix) 900 MG in Dextrose 1 BAG IV SCH ×3 (03:30→19:07)
[2017-01-19] MEDS: IBUPROFEN 800 MG TABLET PO PRN ×3 (03:30→23:41)
[2017-01-19] MEDS: HYDROcodone-APAP 5 MG -325 MG TABLET PO PRN ×3 (03:31→19:07)
[2017-01-19 05:53] LABS: HEMATOCRIT 30.9 % (37.0-47.0); HEMOGLOBIN 10.1 g/dL (12.0-16.0); MEAN CORPUSCULAR HEMOGLOBIN 29.4 PG (27-31); MEAN CORPUSCULAR HGB CONC 32.7 g/dL (33-37); MEAN CORPUSCULAR VOLUME 89.8 FL (81-99); MEAN PLATELET VOLUME 9.3 FL (7.4-12.2); RED BLOOD COUNT 3.44 10^6/uL (4.20-5.40)
[2017-01-19] MEDS: DOCUSATE 100 MG CAPSULE PO SCH ×2 (08:29→20:26)
[2017-01-19] MEDS: Prenatal Multivitamin Tab 1 TAB TAB PO SCH (08:30)
--- NOTE | 2017-01-19 09:35 | PDOC(PROG) ---
Interval History: 26 yo G3 now P2 admitted 2 nights ago for fever, abdominal pain, leukocytosis - presumed endometritis. She has been afebrile >24 hours. DIOP improved yesterday after caffeine, fluids. She reports an episode of excruciating pain overnight, pain in upper back, head. So bad she couldn't move. Improved with heat pack. Not ready to go home until she knows her pain is resolved. She reported increased lochia yesterday, brown, clotted. No odor. Had some increased lower abdominal pain. Has not had a good BM in a couple days, she did have 2 small timothy yesterday. Objective : Data - Labs CBC and BMP: 01/19/17 04:56 Labs - Last 24 Hours: Laboratory Results 01/19/17 Range/Units 04:56 WBC 8.57 (4.8-10.8) 10^3/uL RBC 3.44 L (4.20-5.40) 10^6/uL Hgb 10.1 L (12.0-16.0) g/dL Hct 30.9 L (37.0-47.0) % MCV 89.8 (81-99) FL MCH 29.4 (27-31) PG MCHC 32.7 L (33-37) g/dL RDW Std Deviation 41.1 (39-50) fL RDW Coeff of Marian 12.9 (11.5-14.5) % Plt Count 229 (140-350) 10*3/uL MPV 9.3 (7.4-12.2) FL Objective : Exam - General General Appearance: No Acute Distress, Cooperative - Head Head Exam: Normal Inspection - Eye Eye Exam: EOMI, No Scleral Icterus - ENT ENT Exam: Normal Exam, Mucous Membranes Moist - Neck Neck Exam: Normal Inspection, Tenderness (cervical paraspinous muscles, palpable spasm), No Lymphadenopathy - Respiratory Respiratory Exam: Clear to Auscultation - Bilaterally, Breathing Non Labored - Cardiovascular Cardiovascular Exam: RRR - GI/Abdominal GI/Abdominal Exam: Normal Bowel Sounds, Non Tender, Non Distended, Soft - Extremities Extremities Exam: No Edema Present - Back Back Exam: Paraspinal Tenderness - Neurological Neurological Exam: Alert, Oriented x 3 - Psychiatric Psychiatric Exam: Flat Affect - Integumentary Integumentary Exam: Warm, Dry, Intact Assessment and Plan - Patient Problems (1) Endometritis Current Visit: Yes Status: AcuteSupport Text: Presumed endometritis given fever, abdominal tenderness, leukocytosis. Afebrile >24 hours now. However with an episode of upper back pain in the middle of the night. Blood cultures negative from [facility]. Leukocytosis resolved. -Continue IV clindamycin 900 mg q8h, gentamycin 5mg/kg iv daily until 24 hours afebrile, will reassess this afternoon -Will have PT see her again today, paraspinous muscles are tender and spasm'd -Toradol, vicodin for pain -Restart IVF as patient is worried about her milk supply -Continue caffeine for headache, still doubt spinal DIOP as source. -Pump and dump until 24 hours after last IV clinda dose -Add Miralax for constipation -Encouraged ambulation -SCDs for ppx -Anticipate d/c home tomorrow or this afternoon if doing well Photo / Body Diagrams - Uploaded Photos Uploaded Photos:
[2017-01-19] MEDS ORDERED: NORMAL SALINE 100 ML IV SCH (09:45)
[2017-01-19] MEDS: Sodium Chloride 0.9% 1,000 ML PRIMARY IV SCH ×2 (10:52→20:25)
[2017-01-19] MEDS ORDERED: CYCLOBENZAPRINE 10 MG TABLET PO PRN (16:26)
[2017-01-19 16:45] LABS: HEMATOCRIT 32.8 % (37.0-47.0); HEMOGLOBIN 10.9 g/dL (12.0-16.0); MEAN CORPUSCULAR HEMOGLOBIN 29.9 PG (27-31); MEAN CORPUSCULAR HGB CONC 33.2 g/dL (33-37); MEAN CORPUSCULAR VOLUME 89.9 FL (81-99); MEAN PLATELET VOLUME 8.6 FL (7.4-12.2); RED BLOOD COUNT 3.65 10^6/uL (4.20-5.40)
[2017-01-19 16:56] LABS: BLOOD UREA NITROGEN 10 mg/dL (7-22); CALCIUM 8.6 mg/dL (8.7-10.7); EST GLOMERULAR FILTRATION > 60 (>60 ml/min/1.73m(2)); SERUM ALBUMIN 3.2 g/dL (3.5-4.8); URIC ACID 3.7 mg/dl (2.5-6.2)
[2017-01-19] MEDS: NORMAL SALINE 10 ML SYRINGE FLUSH IVP PRN (17:04)
[2017-01-19] MEDS ORDERED: Gentamicin Inj 40 MG/ML VIAL ONE (20:18)
[2017-01-19 22:00] LABS: BILIRUBIN,URINE NEGATIVE (NEG); COLOR,URINE YELLOW; GLUCOSE, URINE (UA) NEGATIVE (NEG); NITRATE,URINE NEGATIVE (NEG); OCCULT BLOOD,URINE SMALL (NEG); PH,URINE 5.5 (5.0-8.5); PROTEIN,URINE TRACE mg/dl (NEG); UROBILINOGEN,URINE 0.2 EU/dL (0.2)
[2017-01-19 22:05] LABS: BACTERIA,URINE RARE; CLARITY,URINE CLEAR (CLEAR); URINE SAMPLE TYPE CLEAN CATCH URINE; WBC,URINE 0-1
[2017-01-20] MEDS: Clindamycin 900mg (Premix) 900 MG in Dextrose 1 BAG IV SCH (04:13)
[2017-01-20] MEDS: Sodium Chloride 0.9% 1,000 ML PRIMARY IV SCH (06:20)
[2017-01-20] MEDS: HYDROcodone-APAP 5 MG -325 MG TABLET PO PRN (08:24)
[2017-01-20] MEDS: Prenatal Multivitamin Tab 1 TAB TAB PO SCH (08:25)
[2017-01-20] MEDS: DOCUSATE 100 MG CAPSULE PO SCH (08:25)
[2017-01-20] MEDS ORDERED: POLYETHYLENE GLYCOL 3350 17 GM POWDER PO SCH (09:00)
[2017-01-20 12:13] VITALS: RESP 14; TEMP 98.6
--- NOTE | 2017-01-20 14:08 | DCSUMMARY ---
Hospitalization Summary Admit Date: 01/17/17 Discharge Date: 01/20/17 Primary Diagnosis:: Endometritis Secondary Diagnosis:: Back pain Headache Hospital Course: 26 yo G3 now P2, PPD 10 s/p . Patient was admitted on 01/17/17 after presenting to the [place] ER with fever (up to 103), back and abdominal pain. Workup notable for leukocytosis to 15,000. CT was negative for appy, but did show some hypervascularity of the uterus. No e/o UTI. Given fundal tenderness, fever, leukocytosis she was admitted for endometritis and started on IV clinda and gent. She is now >48 hours afebrile, uterine tenderness much improved. She has mild lochia, no odor. Hospital course complicated further by DIOP, back and neck pain. PT has been very helpful and an outpatient Rx has been written. She did have increased SOB this morning and hypoxia. DDimer was elevated - CTA negative for PE but notable for b/l pleural effusions. Since turning off her fluids her breathing is much improved. We did continue the fluids yesterday to try to help with her milk supply, although I suspect this is the reason for the pulmonary eduma/pleural effusions. She did have several BPs overnight >140/90 - gestational htn panel unremarkable, trace urine protein. BP 133/82 at discharge. DIOP resolved. Neck and back pain improved. Patient stable for d/c to home. Exam - Vitals Vital Signs: Vital Signs Temperature 98.6 F Temperature Source Temporal Artery Scan Pulse Rate [Apical] 68 Pulse Rate [Pulse Oximeter] 86 Pulse Rate [Pulse Oximeter] 67 Pulse Rate 93 Respiratory Rate 14 Blood Pressure [Left Arm] 157/91 Blood Pressure [Right Arm] 144/101 Blood Pressure 144/98 Pulse Ox 96 Oxygen Flow Rate 1 Oxygen Delivery Method Room Air Height 5 ft 6 in Weight 151 lb - General General Appearance: POSITIVE: No Acute Distress, Cooperative - Head Head Exam: POSITIVE: Normal Inspection - Eye Eye Exam: POSITIVE: Normal Appearance - ENT ENT Exam: POSITIVE: Normal Exam, Mucous Membranes Moist - Neck Neck Exam: POSITIVE: Normal Inspection, No Lymphadenopathy - Respiratory Respiratory Exam: POSITIVE: Breathing Non Labored, Coarse Breath Sounds (at bases) - Cardiovascular Cardiovascular Exam: POSITIVE: RRR, No Murmur - GI/Abdominal GI/Abdominal Exam: POSITIVE: Normal Bowel Sounds, Non Tender, Non Distended, Soft, Firm (U-3, very mild tenderness over fundus - improved since admission) - Exam: POSITIVE: Deferred - Extremities Extremities Exam: POSITIVE: Normal Inspection, Full ROM, Normal Capillary Refill , No Edema Present, Negative Emily's sign. NEGATIVE: Calf Tenderness - Neurological Neurological Exam: POSITIVE: Alert, Oriented x 3 - Psychiatric Psychiatric Exam: POSITIVE: Normal Affect, Normal Mood - Integumentary Integumentary Exam: POSITIVE: Normal Color Data Perinent Studies: 01/19/17 01/19/17 01/20/17 16:40 22:05 07:55 WBC 8.00 Hgb 10.9 L Hct 32.8 L Plt Count 245 D-Dimer 3.63 H Sodium 141 Potassium 3.7 L Chloride 107 Carbon Dioxide 24 BUN 10 Creatinine 0.5 Glucose 104 Uric Acid 3.7 Calcium 8.6 L Total Bilirubin 0.3 AST 36 ALT 43 Alkaline Phosphatase 142 H Ur Collection Type Clean catch urine Ur Specific [place] 1.025 Urine Protein Trace Urine Glucose (UA) Negative Urine Ketones Negative Urine Occult Blood Small H Urine Nitrate Negative Urine Bilirubin Negative Ur Leukocyte Esterase Negative Urine Bacteria Rare CTA Chest 01/20/17- Diffuse air space disease most c/w edema. B/l pleural effusions, no pulmonary embolism. CXR 01/19/17 - No airspace disease CT abd/perlvis w/ contrast 01/17/17 - Enlarged uterus, probably still w/in normal limits for the patient's one week pp status. Anterior aspect of the uterus is hypervascular and this may be related to the site of implantation of the placenta during this . There is a 3 cm area of increased density withint the uterine cavity at the jtn between the uterus and cervix and the exact etiology is uncertain. 2 possibilities would be a residual blood clot vs retained products of conception, assuming the patient is having vaginal bleeding. Ovaries are normal. Patient Problems - Patient Problem List (1) Endometritis Current Visit: Yes Status: AcuteSupport Text: Resolved. Antibiotic course complete as >48 hours afebrile now. To pump and dump until 24 hours after last dose of clinda. (2) Thoracalgia Current Visit: Yes Status: Acute Support Text: Acute on chronic. Continue PT/OT as outpatient, Rx written. Rx for flexeril and [place] sent in. Would try to avoid use of flexeril given , but it will be available if pain is bad enough. (3) Cervicalgia Current Visit: Yes Status: Acute
--- NOTE | 2017-01-21 08:07 | PT.PROG ---
Progress Note Progress Note: S: Pt. states she is still having a headache. Still pretty miserable she states. O: Treatment consisted of moist heat and ifc to neck followed by combo and massage to neck and thoracic spine. A: Pt. continues have have a headache, and neck pain. She does have relief following modalities. P: Continue per POC to increase strength and activity tolerance. Shari Rothman, [employer]
--- NOTE | 2017-01-21 12:27 | PTI REPORT ---
Thank you for the referral of Jason Sebastian. She was seen on 01/18/17 for an inpatient evaluation secondary to headaches and back pain. SUBJECTIVE: The patient is a 26-year-old female. The patient reports that she lives in [place]. She reports she is currently not working. The patient has a five-year- old at home and now a gdsic-pre-lrs baby. The patient reports that she has had a lot of neck pain and back pain in the past and had an injection but didn't seem to find much relief. The patient reports she is having headaches more intensely. The patient reports she has her massage her to improve pain and that seems to help. PAST MEDICAL HISTORY: Past medical history can be found in the patient's medical record. OBJECTIVE FINDINGS: General observations: The patient was seen seated upright in bed. Range of motion: The patient demonstrated restriction with left rotation and right side bending. The patient is very limited in upper cervical rotation and very tender over suboccipitals. She has a very slumped forward head posture with rounded shoulders and tight pec minors. The patient was able to demonstrate within functional limits shoulder range of motion. ASSESSMENT: The patient is a 26-year-old female that presents with cervical pain and back pain. She is complaining of no low back pain at the moment but the patient said it can be provoked. The patient would benefit from skilled therapy for modalities, light home techniques for strengthening, and improved motion and decreased pain. It is recommended that the patient might benefit from outpatient physical therapy in the future. The patient's prognosis for therapy is fair. Problem List: Decreased functional mobility Pain Decreased range of motion Short-Term Goals: To be met by discharge from inpatient: Patient will have a pain level less than or equal to 3/10. Patient will be able to demonstrate 25% improvement in cervical range of motion. Patient will report 25% decrease in headaches. Long-Term Goals: To be met following discharge from inpatient: Patient should be seen by outpatient physical therapy if symptoms persist. TREATMENT PLAN: Patient will be seen B.I.D during the week and one time per day over the weekend as an inpatient for modalities, therapeutic exercise as appropriate, manual therapy, and range of motion. INITIAL TREATMENT: Treatment today consisted of the initial evaluation followed by an application of moist heat pack with interferential current to the cervical and thoracic spine followed by soft tissue massage to the cervical and thoracic spine. The patient then received manual therapy to cervical segments. Upper cervical rotation was addressed and gentle passive range of motion was performed in all planes while the patient was seated. The patient was left in room with call light within reach and compression pumps on lower extremities. MTDD
--- NOTE | 2017-01-21 14:48 | OT AM DAY ---
Diagnosis : Headaches/Back Pain AM - Occupational Therapy S: The patient reports that her pain is still pretty intense as she described it in the mid back and lower back. She states she still is getting headaches; however, those are a little bit better than they were a couple of days ago. She said four days ago it was just making her cry and scream because the headaches were so intense. O: The patient received an application of moist heat pack to the neck and back followed by manual therapy in the form of edema and pain relieving massage to the lower thoracic and cervical spine region. The patient received traction to the cervical spine region with light first rib mobilizations and lateralization of movement. We did some very light manual mobilizations of the thoracic spine while in a prone position as well as traction to the arms and abduction of the scapula to the right and left side. The patient was also Kinesio taped to assist with back extension as well as a space correction star technique over the T5-T6 area where she says most of the pain is shooting from. A: The patient is definitely demonstrating some possible spinal nerve involvement, especially in the thoracic spine. She had some tests run this morning but the results have not been given yet. We will look at improving her overall pain levels. P: Continue seeing patient BID during the week and one time per day over the weekend for transfers, ambulation, and range of motion/strengthening exercises. JOEY
== END 2017-01-20 16:20 | disposition home or self-care (01) | DRG 776 ==
LOC: ER 18:45 → MED/SURG 20:58
PROVIDERS: ADMIT Student in an Organized Health Care Education/Training Program; ATTEND Student in an Organized Health Care Education/Training Program
DX: O86.12 Endometritis following delivery (principal); M54.6 Pain in thoracic spine; M54.2 Cervicalgia; D72.829 Elevated white blood cell count, unspecified
CPT/HCPCS: 36415; 71020; 71275; 74177; 80053; 81001; 81003; 83615; 84550; 85025; 85027; 85379; 94761; 96361; 96365; 96375; 97010; 97014; 97035; 97110; 97112; 97124; 97140; 97161; 99284; E0240; J1170; J1580; J1885; J2405; J3490; J7030; J7050; J7120

== ENCOUNTER 2017-02-21 08:58 | Day surgery (SDC) | payer OTHER ==
[2017-02-21 09:28] LABS: BILIRUBIN,URINE NEGATIVE (NEG); CLARITY,URINE CLEAR (CLEAR); COLOR,URINE YELLOW; GLUCOSE, URINE (UA) NEGATIVE (NEG); NITRATE,URINE NEGATIVE (NEG); OCCULT BLOOD,URINE NEGATIVE (NEG); PH,URINE 5.5 (5.0-8.5); PROTEIN,URINE NEGATIVE (NEG); UROBILINOGEN,URINE 0.2 EU/dL (0.2)
[2017-02-21] MEDS ORDERED: LIDOCAINE MPF 2% - 5 ML (20 MG/1 ML) ONE (09:37)
[2017-02-21] MEDS ORDERED: fentaNYL Inj 250 MCG/5 ML VIAL ONE (09:37)
[2017-02-21] MEDS ORDERED: MIDAZOLAM 5 MG/1 ML ONE (09:37)
[2017-02-21 09:55] VITALS: RESP 16
[2017-02-21] MEDS ORDERED: Lactated Ringers 1,000 ML PRIMARY IV ONE ×2 (10:07→14:54)
[2017-02-21] MEDS ORDERED: LIDOCAINE W/ SODIUM BICARB 0.5 ML SYR ONE (10:07)
[2017-02-21] MEDS ORDERED: BUPIVACAINE 0.25% W/ EPI - 10 ML VIAL ONE ×2 (10:40)
[2017-02-21] MEDS ORDERED: LIDOCAINE HCL 2 % 10 ML JELLY URO-JECT TOPICAL ONE (10:53)
[2017-02-21] MEDS ORDERED: DEXAMETHASONE SOD PHOSPHATE 4 MG/1 ML VIAL ONE (11:05)
[2017-02-21] MEDS ORDERED: ONDANSETRON 4 MG/2 ML VIAL ONE (11:05)
[2017-02-21] MEDS ORDERED: IBUPROFEN 800 MG TABLET PO PRN (11:17)
[2017-02-21] MEDS ORDERED: Ondansetron ODT Tab 8 MG TAB PO PRN (11:17)
[2017-02-21] MEDS ORDERED: NORMAL SALINE 10 ML SYRINGE FLUSH IVP PRN (11:17)
[2017-02-21] MEDS ORDERED: KETOROLAC 30 MG/1 ML VIAL IVP PRN (11:17)
[2017-02-21 11:23] LABS: URINE SAMPLE TYPE CLEAN CATCH URINE
--- NOTE | 2017-02-21 11:25 | OB.OP.NOTE ---
Operative Report Surgeon: Amanda Surfacer: Nikita Hylton MD Anesthesia Type: General Anesthesia Provider: Joshua Jefferson CRNA Surgery Date: 02/21/17 Preoperative Diagnosis: Desires Sterilization Postoperative Diagnosis: Same Procedure: LSTS with Filshie Clips Estimated Blood Loss (mL): 2 Fluids: 1000 ml Complications: None Findings at Surgery: Normal pelvis. Indications for the Procedure: Desires sterilization. 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 She was then placed in lithotomy position in [facility]. Examination under anesthesia was unremarkable. She was prepped and draped in the normal sterile fashion and her bladder was emptied of urine with a straight catheter. A breakaway speculum was placed in the vagina and the anterior lip of the cervix was grasped with a signal tooth tenaculum. Uterus was sounded to a depth of 8 cm. A HUMI uterine manipulator was introduced in the endometrial cavity and its balloon was inflated with air. The tenaculum was removed. Quarter percent Marcaine with epinephrine was injected at the inferior edge of the umbilicus in the midline and just lateral to that on both sides. The scalpel was used to create a 5 mm midline incision at the inferior edge of the umbilicus. Penetrating towel clamps used to grasp the abdominal wall just lateral to the incision on both sides and elevate while a 5 mm non-bladed laparoscopic trocar was introduced through the umbilical incision into the peritoneal cavity with a direct insertion technique under direct visualization with the fibromatous scope placed within the port. The abdomen was insufflated with carbon dioxide. A second port was then placed in the midline just above the pubic bone after injection with Marcaine. An 8 mm non-bladed [employer] scopic trocar was introduced to this incision into the perineal cavity under direct visualization. A Filshie clip applicator was then introduced through the suprapubic port. The right fallopian tube was grasped at its mid isthmic portion and a single Filshie clip was applied. The applicator was removed from the abdomen and reloaded and reintroduced. The left fallopian tube was then grasped at its mid isthmic portion and a single Filshie clip was applied. Photographs were then taken of both tubes. Inspection of the pelvis revealed good hemostasis and no evidence of bowel bladder or ureter injury. All instruments were then removed from the abdomen and the abdomen was desufflated with direct pressure through the removed The Trocar Sleeves. The sleeves were then removed and the skin was closed with 4-0 Monocryl and dressed appropriate. The HUMI manipulator was removed from the uterus with good hemostasis noted. Sponge lap and needle counts were correct 2. There were no complications at surgery. The patient left to recovery in good condition. Plan: Routine postop care and discharge to home.
[2017-02-21] MEDS ORDERED: HYDROmorphone 2 MG/1 ML ONE (11:39)
[2017-02-21] MEDS ORDERED: HYDROcodone-APAP 7.5 MG-325 MG TABLET PO ONE ×2 (12:00→13:29)
[2017-02-21] MEDS: HYDROcodone-APAP 7.5 MG-325 MG TABLET PO PRN (13:29)
[2017-02-21] MEDS ORDERED: Meperidine Inj 50 MG/ML CARPUJECT ONE (14:23)
[2017-02-21] MEDS ORDERED: Meperidine Inj 50 MG/ML CARPUJECT IVP ONE (14:27)
[2017-02-21 15:22] VITALS: TEMP 98.8
[2017-02-22] MEDS: HYDROcodone-APAP 7.5 MG-325 MG TABLET PO PRN (12:01)
== END 2017-02-21 15:15 | disposition home or self-care (01) ==
LOC: SDSC 08:58
PROVIDERS: ATTEND Obstetrics & Gynecology
DX: Z30.2 Encounter for sterilization (principal)
CPT/HCPCS: 58671; 81003; 84703; J2704; J3010; J1100; J1170; J2001; J2175; J2250; J2405; J7120